=== PATIENT | female | born 1960 | race African-American/Black ===

== ENCOUNTER → 2017-09-21 | Outpatient (CLI) | payer MEDICARE, OTHER | LOC: M RAD 14:11 | DX: Z87.891 Personal history of nicotine dependence (principal) | CPT/HCPCS: G0297 ==

== ENCOUNTER → 2019-02-05 | Outpatient (CLI) | payer MEDICARE, OTHER ==
[~2019-02-05] MED LIST: ASPI81TA26 PO; ATOR40TA75 PO; CARI1TAB7 PO; CITRTAB18 PO; CYAN500T8 PO; E-Z-GAS II EFFERVESCENT PACKET (SODIUM BICARB./CITRIC ACID/SIMETHICONE) As Ordered ONE; E-Z-HD 98% w/w 340GM SUSP BTL As Ordered ONE; E-Z-PAQUE 96% w/w SUSP 176GM BTL As Ordered ONE; HYDR-3713 PO; INDE80CA9 PO; LEVO112T2 PO; LISI10TA4 PO; MYRB25TA PO; OMEGCAP9 PO; PANT20TA2 PO; POTA10TA16 PO; POTA540T PO; PROM25TA12 PO; PROP20TA72 PO; RELP40TA PO; TAMO10TA PO; TAMO20TA8 PO; VITA-113 SL; VITA-157 PO
--- NOTE | 2019-02-06 20:35 | REP ---
Examination Requested: Esophagram Barium Swallow Reason For Exam/Comment: Dysphasia, gastroesophageal reflux disease, nausea with vomiting Esophagram: The procedure was performed [facility], under the direct supervision of Dr. Gillis. The images were reviewed with Dr. Gillis. A single PA chest x-ray is submitted as a java web architect film. The superior mediastinal structures are midline. The heart size is within normal limits. The lungs are clear. Surgical hardware is visualized along the cervical spine. Liquid barium and gas producing granules were given in the erect position as well as liquid barium in the prone oblique position, in order to perform a double contrast esophagram examination. Oral and pharyngeal stages of the examination were unremarkable. Esophageal transport is efficient and there is no esophagitis, stricture, or mucosal ring noted. There is a small hiatal hernia noted. Gastroesophageal reflux was observed to the level of the [place]. Impression: 1. Small hiatal hernia. 2. Gastroesophageal reflux to the level of the [place]. 0.8 minutes of fluoroscopy time was utilized for this procedure. Some fluoroscopic images are performed with last image hold technology. These images require no additional radiation. Reviewed by CHASE Cooper 02/05/2019 04:35 P Electronically Signed by Alejandro Gillis MD 02/06/2019 08:26 P
== END ==
LOC: M RAD 08:13
PROVIDERS: ATTEND Physician Assistant Medical
DX: R13.10 Dysphagia, unspecified (principal); K21.9 Gastro-esophageal reflux disease without esophagitis; R11.2 Nausea with vomiting, unspecified; K44.9 Diaphragmatic hernia without obstruction or gangrene

== ENCOUNTER 2019-02-19 09:20 | Day surgery (SDC) | payer MEDICARE, OTHER ==
[~2019-02-19] VITALS: Ht 177.8 cm; Wt 104.3 kg
[~2019-02-19 09:20] MED LIST changes: -E-Z-GAS II EFFERVESCENT PACKET (SODIUM BICARB./CITRIC ACID/SIMETHICONE) As Ordered ONE; -E-Z-HD 98% w/w 340GM SUSP BTL As Ordered ONE; -E-Z-PAQUE 96% w/w SUSP 176GM BTL As Ordered ONE
[2019-02-19] MEDS ORDERED: LIDOCAINE 2% INJ 100 MG/5 ML SDV (FOR ANES.) As Ordered ONE (10:10)
[2019-02-19] MEDS ORDERED: PROPOFOL 200 MG/20 ML VIAL As Ordered ONE ×2 (10:10→11:20)
[2019-02-19] MEDS ORDERED: NS 1,000 ML IV ONE (10:15)
--- NOTE | 2019-02-19 10:55 | ROOR ---
Patient Name: Ale Dockery Procedure Date: 02/19/2019 10:32 AM Date of : 1960 Age: 58 Room: [facility] Gender: Female Note Status: Finalized Procedure: Upper GI endoscopy Indications: Dysphagia, Heartburn Providers: Dante CADENA MD Referring MD: Lela KEITA MD Requesting Provider: Medicines: Monitored Anesthesia Care Complications: No immediate complications. Procedure: Pre-Anesthesia Assessment: - The heart rate, respiratory rate, oxygen saturations, blood pressure, adequacy of pulmonary ventilation, and response to care were monitored throughout the procedure. The Endoscope was introduced through the mouth, and advanced to the second part of duodenum. The upper GI endoscopy was accomplished without difficulty. The patient tolerated the procedure well. Findings: Mildly severe esophagitis was found in the lower third of the esophagus. Biopsies were taken with a cold forceps for histology. A non-obstructing Schatzki ring was found at the gastroesophageal junction. A TTS dilator was passed through the scope. Dilation with a 15-16.5-18 mm balloon dilator was performed to 15 mm. Biopsies were taken with a cold forceps in the proximal esophagus and in the mid esophagus for histology. Small Hiatal Hernia. The entire examined stomach was normal. The examined duodenum was normal. Impression: - Mildly severe distal esophagitis. Biopsied. - Non-obstructing Schatzki ring. Dilated. - Small Hiatal Hernia. - Normal stomach. - Normal examined duodenum. - Overall smaller caliber esophagus. Biopsies were taken with a cold forceps for histology in the proximal esophagus and in the mid esophagus for r/o EoE. Recommendation: - Observe patient's clinical course. - Telephone endoscopist for pathology results in 2 weeks. - Follow an antireflux regimen. - Continue present medications. Dante Cadena MD Dante CADENA MD 02/19/2019 10:55:21 AM Electronically signed by Dante CADENA MD Number of Addenda: 0 Note Initiated On: 02/19/2019 10:32 AM Estimated Blood Loss: Estimated blood loss: none.
--- NOTE | 2019-02-19 11:13 | ROOR ---
Patient Name: Ale Dockery Procedure Date: 02/19/2019 10:33 AM Date of : 1960 Age: 58 Room: [facility] Gender: Female Note Status: Finalized Procedure: Colonoscopy Indications: Screening for colorectal malignant neoplasm Providers: Dante CADENA MD Referring MD: Lela KEITA MD Requesting Provider: Medicines: Monitored Anesthesia Care Complications: No immediate complications. Procedure: Pre-Anesthesia Assessment: - The heart rate, respiratory rate, oxygen saturations, blood pressure, adequacy of pulmonary ventilation, and response to care were monitored throughout the procedure. The Colonoscope was introduced through the anus and advanced to the cecum, identified by appendiceal orifice and ileocecal valve. The colonoscopy was performed with difficulty due to inadequate bowel prep. The patient tolerated the procedure well. The quality of the bowel preparation was inadequate. Findings: The perianal and digital rectal examinations were normal. The exam was otherwise normal throughout the examined colon. Impression: - Preparation of the colon was inadequate. - No specimens collected. Recommendation: - Repeat colonoscopy at the next available appointment because the bowel preparation was poor. - My office will call you within the next few days to reschedule a colonoscopy with alternate colon preparation. - (This is your second poorly prepped colonoscopy. This exam is inadequate. Rec alternate colon preparation for next colonoscopy) Dante Cadena MD Dante CADENA MD 02/19/2019 11:12:31 AM Electronically signed by Dante CADENA MD Number of Addenda: 0 Note Initiated On: 02/19/2019 10:33 AM Estimated Blood Loss: Estimated blood loss: none.
[2019-02-19 11:30] VITALS: BP 198/78
== END 2019-02-19 11:41 | disposition home or self-care (01) ==
LOC: M OPP 09:20
PROVIDERS: ATTEND Internal Medicine Gastroenterology
DX: Z12.11 Encounter for screening for malignant neoplasm of colon (principal); K20.9 Esophagitis, unspecified; K22.2 Esophageal obstruction; R13.10 Dysphagia, unspecified; R12 Heartburn; K44.9 Diaphragmatic hernia without obstruction or gangrene; Z79.899 Other long term (current) drug therapy; Z79.82 Long term (current) use of aspirin; Z88.8 Allergy status to other drugs, medicaments and biological substances; Z87.891 Personal history of nicotine dependence
CPT/HCPCS: 43239; 43249; 88305; G0121

== ENCOUNTER → 2022-12-29 | Outpatient (CLI) | payer MEDICARE, OTHER ==
[~2022-12-29] MED LIST changes: +CYAN500T14 PO; -CYAN500T8 PO; +CYCL-707 PO; +LISI10TA22 PO; -LISI10TA4 PO; -PANT20TA2 PO; +PANT20TA6 PO; +POTA-149 PO; -POTA10TA16 PO; +SYNT112T2 PO; -TAMO10TA PO; +TAMO10TA8 PO; -VITA-157 PO; +VITAE40CA PO; +ZONI25CA13 PO
== END ==
LOC: M WHC 15:08
PROVIDERS: ATTEND Advanced Practice Midwife
DX: Z12.31 Encounter for screening mammogram for malignant neoplasm of breast (principal); Z86.018 Personal history of other benign neoplasm

== ENCOUNTER → 2024-04-01 | Outpatient (CLI) | payer MEDICARE, OTHER ==
[2024-04-01 11:46] LABS: BLOOD UREA NITROGEN 6 MG/DL (9-23); CREATININE FOR GFR 0.99 MG/DL (0.55-1.30); GLOMERULAR FILTRATION RATE > 60.0 (>45)
== END ==
LOC: M LAB 10:03
PROVIDERS: ATTEND Psychiatry & Neurology Neurology
DX: I10 Essential (primary) hypertension (principal)